=== PATIENT | female | born 1985 | race Two or more races ===

== ENCOUNTER 2017-08-24 21:01 | Emergency (ER) | payer MEDICAID ==
--- NOTE | 2017-08-24 21:58 | RADIOLOGY REPORT (SQ) ---
EXAM DESCRIPTION: KNEE LEFT 4 VIEW COMPLETED DATE/TIME: 08/24/2017 9:41 pm REASON FOR STUDY: left knee injury COMPARISON: None. NUMBER OF VIEWS: Four views. TECHNIQUE: AP, lateral, and both oblique radiographic images acquired of the left knee. LIMITATIONS: None. FINDINGS: MINERALIZATION: Normal. BONES: No acute fracture or dislocation. No worrisome bone lesions. JOINT: No effusion. SOFT TISSUES: No soft tissue swelling. No radio-opaque foreign body. OTHER: No other significant finding. IMPRESSION: NEGATIVE STUDY OF THE LEFT KNEE. NO RADIOGRAPHIC EVIDENCE OF ACUTE INJURY. TECHNICAL DOCUMENTATION: JOB ID: [id number] [employer]- All Rights Reserved Reading location - IP/workstation name: [email or web address]
[2017-08-24] MEDS ORDERED: KETOROLAC TROMETHAMINE 60 MG/2 ML SDV IM ONE (22:09)
--- NOTE | 2017-08-24 22:09 | ER Document Report ---
ED General - General Chief Complaint: Knee Injury Stated Complaint: KNEE INJURY Time Seen by Provider: 08/24/17 21:11 Mode of Arrival: Wheelchair Information source: POA - Power of Director Validation Notes: 31-year-old female presents with complaints of left knee injury. Patient notes she was ambulating in her leg slipped and she feels there is a pop sensation in the medial aspect. Patient denies any previous similar episodes TRAVEL OUTSIDE OF THE [place] IN LAST 30 DAYS: No - HPI Onset: Just prior to arrival Onset/Duration: Sudden Quality of pain: Achy Severity: Mild Pain Level: 1 Associated symptoms: Body/muscle aches Exacerbated by: Movement Relieved by: Denies Similar symptoms previously: No Recently seen / treated by doctor: No Past Medical History - Social History Smoking Status: Never Smoker Cigarette use (# per day): No Chew tobacco use (# tins/day): No Smoking Education Provided: No Family History: Reviewed & Not Pertinent Review of Systems - Review of Systems Notes: REVIEW OF SYSTEMS: CONSTITUTIONAL : Denies fever, chills, or sweats. Denies recent illness. EENT: Denies eye, ear, throat, or mouth pain or symptoms. Denies nasal or sinus congestion or discharge. Denies throat, tongue, or mouth swelling or difficulty swallowing. CARDIOVASCULAR: Denies chest pain. Denies palpitations or racing or irregular heart beat. Denies ankle edema. RESPIRATORY: Denies cough, cold, or chest congestion. Denies shortness of breath, difficulty breathing, or wheezing. GASTROINTESTINAL: Denies abdominal pain or distention. Denies nausea, vomiting , or diarrhea. Denies blood in vomitus, stools, or per rectum. Denies black, tarry stools. Denies constipation. GENITOURINARY: Denies difficulty urinating, painful urination, burning, frequency, blood in urine, or discharge. FEMALE GENITOURINARY: Denies vaginal bleeding, heavy or abnormal periods, irregular periods. Denies vaginal discharge or odor. MUSCULOSKELETAL: Admits to left knee pain SKIN: Denies rash, lesions or sores. HEMATOLOGIC : Denies easy bruising or bleeding. LYMPHATIC: Denies swollen, enlarged glands. NEUROLOGICAL: Denies confusion or altered mental status. Denies passing out or loss of consciousness. Denies dizziness or lightheadedness. Denies headache. Denies weakness or paralysis or loss of use of either side. Denies problems with gait or speech. Denies sensory loss, numbness, or tingling. Denies seizures. PSYCHIATRIC: Denies anxiety or stress. Denies depression, suicidal ideation, or homicidal ideation. ALL OTHER SYSTEMS REVIEWED AND NEGATIVE. PHYSICAL EXAMINATION: GENERAL: Well-appearing, well-nourished and in no acute distress. HEAD: Atraumatic, normocephalic. EYES: Pupils equal round extraocular movements intact, conjunctiva are normal. ENT: Nares patent NECK: Normal range of motion LUNGS: No respiratory distress Musculoskeletal: Normal range of motion except as noted NEUROLOGICAL: Normal speech, normal gait. PSYCH: Normal mood, normal affect. SKIN: Warm, Dry, normal turgor, no rashes or lesions noted. Physical Exam - Extremities Knee: Tender, Unable to bear weight. 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 Patient will be also given crutches and follow-up with orthopedics in 1 week for reevaluation. Patient was given pain control here There is no laxity there is no life-threatening signs at this time therefore I do believe the patient stable for discharge After performing a Medical Screening Examination, I estimate there is LOW risk for INTRACRANIAL HEMORRHAGE, UNSTABLE SPINE FRACTURE, CENTRAL CORD SYNDROME, CAUDA EQUINA, THORACIC AORTIC DISSECTION, PNEUMOTHORAX, PERFORATED BOWEL, RUPTURED ABDOMINAL AORTIC ANEURYSM, ACUTE TENDON RUPTURE, COMPARTMENT SYNDROME, or OPEN FRACTURE, thus I consider the discharge disposition reasonable. Also, there is no evidence or peritonitis, sepsis, or toxicity. I have reevaluated this patient multiple times and no significant life threatening changes are noted. The patient and I have discussed the diagnosis and risks, and we agree with discharging home to follow-up with their primary doctor with the understanding that symptoms and presentations can change. We also discussed returning to the Emergency Department immediately if new or worsening symptoms occur. We have discussed the symptoms which are most concerning (e.g., bloody stool, fever, changing or worsening pain, vomiting) that necessitate immediate return. - Diagnostic Test Radiology reviewed: Image reviewed - No acute fracture, Reports reviewed - No acute fracture noted report given to patient Procedures - Immobilization Left Knee Time completed: 20:00 Pre-Proc Neuro Vasc Exam: Normal Immobilizer type: Mac wrap, Knee immobilizer Performed by: PCT Post-Proc Neuro Vasc Exam: Normal Alignment checked and good: Yes Discharge - Discharge Clinical Impression: Right knee injury Qualifiers: Encounter type: initial encounter Qualified Code(s): S89.91XA - Unspecified injury of right lower leg, initial encounter Acute medial meniscal injury of knee Qualifiers: Encounter type: initial encounter Laterality: left Qualified Code(s): S83.8X2A - Sprain of other specified parts of left knee, initial encounter Condition: Stable Disposition: HOME, SELF-CARE Instructions: Suspected Internal Knee Injury ([facility]), Knee Immobilizing Splint ( [facility]) Prescriptions: Ketorolac Tromethamine [Toradol 10 mg Tablet] 10 mg PO Q8HP PRN #14 tablet PRN Reason: Referrals: YOLANDE DANIEL MD [ACTIVE STAFF] - Follow up in 1 week
== END 2017-08-24 22:33 | disposition home or self-care (01) ==
LOC: ER 21:01
DX: S83.8X2A Sprain of other specified parts of left knee, initial encounter (principal); M79.1 Myalgia; W01.0XXA Fall on same level from slipping, tripping and stumbling without subsequent striking against object, initial encounter
CPT/HCPCS: 99283; 96372; 73562; L1830; J1885

== ENCOUNTER 2018-01-18 00:49 | Emergency (ER) | payer MEDICAID ==
[2018-01-18 00:56] VITALS: BP 102/86
--- NOTE | 2018-01-18 01:24 | ER Document Report ---
ED General - General Chief Complaint: Congestion Stated Complaint: FEVER/CONGESTION Time Seen by Provider: 01/18/18 01:15 Notes: Patient is a 32-year-old female presents with complaint of nasal congestion, sinus pressure, cough, intermittent fever for close to a month. Temp is been around 101 at home. No vomiting. No diarrhea. No abdominal pain. No chest pain. No other complaints at this time. She does not smoke. She does not have a history of seasonal allergies. She has not had any itchy or watery eyes. She is taking qhmr-[id number]-pdzvmfr cough medicine which has not helped. She of asthma. TRAVEL OUTSIDE OF THE [place] IN LAST 30 DAYS: No - Related Data Allergies/Adverse Reactions: No Known Allergies Allergy (Unverified 01/18/18 00:52) Past Medical History - Social History Smoking Status: Never Smoker Chew tobacco use (# tins/day): No Frequency of alcohol use: None Drug Abuse: None Family History: Reviewed & Not Pertinent Patient has suicidal ideation: No Patient has homicidal ideation: No Renal/ Medical History: Denies: Hx Peritoneal Dialysis Past Surgical History: Reports: Hx Section Review of Systems - Review of Systems Notes: My Normal Review Basic REVIEW OF SYSTEMS: CONSTITUTIONAL : Fever EENT: Nasal congestion and sinus pressure. CARDIOVASCULAR: Denies chest pain. RESPIRATORY: Current cough GASTROINTESTINAL: Denies abdominal pain. Denies nausea, vomiting, or diarrhea. Denies constipation. Last BM: MUSCULOSKELETAL: Denies neck or back pain or joint pain or swelling. SKIN: Denies rash or skin lesions. NEUROLOGICAL: Denies altered mental status or loss of consciousness. Mild headache. Denies weakness or paralysis or loss of use of either side. Denies problems with gait or speech. Denies sensory or motor loss. ALL OTHER SYSTEMS REVIEWED AND NEGATIVE. Physical Exam - Vital signs Vitals: Temp Pulse Resp BP Pulse Ox 98.2 F 82 16 102/86 H 97 01/18/18 00:54 01/18/18 00:54 01/18/18 00:54 01/18/18 00:54 01/18/18 00:54 - Notes Notes: General Appearance: Well nourished, alert, cooperative, no acute distress, no obvious discomfort. Current dry cough during exam. Audible nasal congestion. Vitals: reviewed, See vital signs table. Head: no swelling or tenderness to the head Eyes: PERRL, EOMI, Conjuctiva clear Mouth: No decreasd moisture Nose: Faint yellow drainage and sudden nasal passages. Ears: Normal-appearing tympanic membranes bilaterally. Throat: No tonsillar inflammation, No airway obstruction, No lymphadenopathy Neck: Supple, no neck tenderness, No thyromegaly Lungs: No increased work of breathing. Patient does have faint wheeze on the right side. Good air movement. Heart: Normal rate, Regular rythm, No murmur, no rub Abdomen: Normal BS, soft, No rigidity, No abdominal tenderness, No guarding, no rebound, no abdominal masses, no organomegaly Extremities: good pulses in all extremities, no edema. Skin: warm, dry, appropriate color, no rash Neuro: speech clear, oriented x 3, normal affect, responds appropriately to questions. Course - Re-evaluation Re-evalutation: 01/18/18 06:11 Patient has what appears to be sinusitis. She is been having recurrent fevers and congestion for now almost a month. Will place her on Augmentin. Chest x- ray did not show any evidence of pneumonia. Patient to return to ER if she has difficulty breathing, recurrent fevers, or feels that she is worsening. Patient agrees with plan will be discharged home. Dictation of this chart was performed using voice recognition software; therefore, there may be some unintended grammatical errors. - Vital Signs Vital signs: Temp Pulse Resp BP Pulse Ox 98.2 F 82 16 102/86 H 97 01/18/18 00:54 01/18/18 00:54 01/18/18 00:54 01/18/18 00:54 01/18/18 00:54 Discharge - Discharge Clinical Impression: Sinusitis Qualifiers: Sinusitis location: unspecified location Chronicity: acute Recurrence: not specified as recurrent Qualified Code(s): J01.90 - Acute sinusitis, unspecified Condition: Good Disposition: HOME, SELF-CARE Additional Instructions: Please take the antibiotics as prescribed. Stop the antibiotics if you develop diarrhea. Please follow up with a doctor in 3-5 days for reevaluation. Please return to the ER immediately if you develop recurrent fevers, difficulty breathing, or severe headaches. Prescriptions: Amox Tr/Potassium Clavulanate [Augmentin 875-125 Tablet] 1 tab PO BID 10 Days tablet Forms: Return to Work
--- NOTE | 2018-01-18 02:00 | RADIOLOGY REPORT (SQ) ---
EXAM DESCRIPTION: XR CHEST 2 VIEWS COMPLETED DATE/TME: 01/18/2018 01:21 CLINICAL HISTORY: 32 years Female, cough, fever COMPARISON: None. FINDINGS: Adequate lung volume, clear parenchyma, normal cardiac silhouette, and grossly intact bony thorax. IMPRESSION: No acute cardiopulmonary findings.
[2018-01-18] MEDS ORDERED: AMOXICILLIN TR/POT CLAVULANATE 500-125 MG TAB PO ONE (02:16)
[2018-01-18] MEDS ORDERED: DEXAMETHASONE SOD PHOS INJ 10 MG/1 ML VIAL IM ONE (02:16)
== END 2018-01-18 02:43 | disposition home or self-care (01) ==
LOC: ER 00:49
DX: J01.90 Acute sinusitis, unspecified (principal); R09.81 Nasal congestion; R05 Cough; R50.9 Fever, unspecified; R06.2 Wheezing
CPT/HCPCS: 99283; 96372; 71046; J3490; J1100

== ENCOUNTER 2018-06-06 03:50 | Emergency (ER) | payer MEDICAID ==
[2018-06-06 03:55] VITALS: BP 128/74
--- NOTE | 2018-06-06 04:21 | ER Document Report ---
ED General - General Mode of Arrival: Ambulatory Information source: Patient TRAVEL OUTSIDE OF THE [place] IN LAST 30 DAYS: No - General Chief Complaint: Flu Symptoms Stated Complaint: FLU SYMPTOMS Time Seen by Provider: 06/06/18 04:08 Notes: Patient is a 32 year old female presenting to the emergency department complaining of flu like symptoms including fevers, chills, body aches, cough and congestion. Patient states her cough and congestion were onset 06/02 and her fever and chills were onset on 06/04. Patient also complains of a small amount of throat pain. Patient's LMP was last week. Patient denies receiving a flu shot this year. ([place]ON JO[place]) - Related Data Allergies/Adverse Reactions: No Known Allergies Allergy (Unverified 01/18/18 00:52) Past Medical History - General Information source: Patient - Social History Smoking Status: Never Smoker Cigarette use (# per day): No Chew tobacco use (# tins/day): No Smoking Education Provided: No Frequency of alcohol use: None Family History: Reviewed & Not Pertinent Past Surgical History: Reports: Hx Section - x3, Hx Tubal Ligation Review of Systems - Review of Systems Constitutional: See HPI, Chills, Fever EENT: See HPI, Nose congestion Cardiovascular: No symptoms reported Respiratory: See HPI, Cough Gastrointestinal: No symptoms reported Genitourinary: No symptoms reported Female Genitourinary: No symptoms reported Musculoskeletal: No symptoms reported, See HPI Skin: No symptoms reported Hematologic/Lymphatic: No symptoms reported Neurological/Psychological: No symptoms reported -: Yes All other systems reviewed and negative Physical Exam - Vital signs Vitals: Temp Pulse Resp BP Pulse Ox 98 F 90 16 128/74 H 96 06/06/18 03:51 06/06/18 03:51 06/06/18 03:51 06/06/18 03:51 06/06/18 03:51 - Notes Notes: GENERAL: Alert, interacts well. No acute distress. HEAD: Normocephalic, atraumatic. EYES: Pupils equal, round, and reactive to light. Extraocular movements intact. ENT: Oral mucosa moist, tongue midline. Nares patent, no nasal septal hematoma, TM's retracted bilaterally. NECK: Full range of motion. Supple. Trachea midline. LUNGS: Harsh cough. Expiratory wheeze with cough. HEART: Regular rate and rhythm. No murmurs, gallops, or rubs. ABDOMEN: Soft, non-tender. Non-distended. Bowel sounds present in all 4 quadrants. EXTREMITIES: Moves all 4 extremities spontaneously. NEUROLOGICAL: Alert and oriented x3. Normal speech. PSYCH: Normal affect, normal mood. SKIN: Warm, dry, normal turgor. No rashes or lesions noted. ([place]) - Vital Signs Vital signs: Temp Pulse Resp BP Pulse Ox 98 F 90 16 128/74 H 96 06/06/18 03:51 06/06/18 03:51 06/06/18 03:51 06/06/18 03:51 06/06/18 03:51 Discharge - Discharge Clinical Impression: Influenza-like illness Condition: Stable Disposition: HOME, SELF-CARE Additional Instructions: Viral Syndrome The physician has diagnosed a viral infection. Viruses not only cause "colds," but can cause many different symptoms including generalized aching, fever, headache, cough, diarrhea, nausea, vomiting, and fatigue. The treatment, for the most part, is simply relief of symptoms. This means that antibiotics are usually not given. Rest, fluids, pain medications and, occasionally, medication for the specific symptoms that are most bothersome will be prescribed. Use good handwashing to avoid passing the virus to others. Shared toys should be cleaned with disinfectant. Clean the toilets, sinks, and counter surfaces in bathrooms. Launder clothing in hot water. Contact the physician if you develop any new or unusual symptoms such as severe headache, stiff neck, high fever, chest pain, productive cough, or shortness of breath. You should be rechecked if you don't see marked improvement within seven to 10 days. You appear to have a viral influenza-like illness, but it is not the real influenza. Take [id number]-[id number] cough and cold preparations for symptomatic relief. Drink plenty of fluids and get plenty of rest. Take Tylenol and ibuprofen for fever and aches and pains. Be sure to check the ingredients of any krtj-eeb-bjmeaol cough and cold preparations so you do not take excessive amounts of Tylenol. Follow-up with your primary care provider if not improving. RETURN TO THE EMERGENCY ROOM IF ANY NEW OR WORSENING SYMPTOMS. Forms: Return to Work Scribe Attestation: 06/06/18 04:56 I personally performed the services described in the documentation, reviewed and edited the documentation which was dictated to the scribe in my presence, and it accurately records my words and actions. (MEG NATH) Ramanibe Documentation - Scribe Written by Cisco:: Cisco Nicholson, 06/06/2018 04:21 acting as scribe for :: Gal
[2018-06-06 05:01] LABS: A TYPE INFLUENZA AG NEGATIVE (NEGATIVE); B INFLUENZA AG NEGATIVE (NEGATIVE)
== END 2018-06-06 05:26 | disposition home or self-care (01) ==
LOC: ER 03:50
DX: J11.1 Influenza due to unidentified influenza virus with other respiratory manifestations (principal); R50.9 Fever, unspecified; R05 Cough; R07.0 Pain in throat; R09.81 Nasal congestion; R06.2 Wheezing
CPT/HCPCS: 87804; 99283

== ENCOUNTER 2018-08-01 03:04 | Emergency (ER) | payer SELFPAY ==
[2018-08-01 07:47] LABS: APPEARANCE,URINE SLIGHTLY-CLOUDY; BILIRUBIN,URINE NEGATIVE (NEGATIVE); COLOR,URINE YELLOW; GLUCOSE, URINE NEGATIVE (NEGATIVE); KETONES,URINE NEGATIVE (NEGATIVE); LEUKOCYTE ESTERASE,URINE SMALL (NEGATIVE); NITRITE,URINE POSITIVE (NEGATIVE); PROTEIN,URINE NEGATIVE (NEGATIVE); URINE SPECIFIC GRAVITY 1.016; UROBILINOGEN,URINE NEGATIVE mg/dL (<2.0)
[2018-08-01] MEDS ORDERED: KETOROLAC TROMETHAMINE 60 MG/2 ML SDV IM ONE (07:57)
[2018-08-01] MEDS ORDERED: NITROFURANTOIN MONOHYD/M-CRYST 100 MG CAPSULE PO ONE (07:58)
--- NOTE | 2018-08-01 08:19 | ER Document Report ---
ED General - General Chief Complaint: Back Pain Stated Complaint: BACK PAIN Time Seen by Provider: 08/01/18 06:23 TRAVEL OUTSIDE OF THE [place] IN LAST 30 DAYS: No - HPI Notes: Patient presents to the emergency department for evaluation of lower back pain. She states it started primarily on the right side but is now hurting her entire back. She states symptoms been present for 6 days. She states she had some low-grade feelings fevers but never actually took her temperature. She has had no nausea or vomiting. She states nearly everything hurts at this point. She denies any bowel or bladder incontinence, no saddle anesthesia, no focal numbness or weakness. She does report some urinary frequency. - Related Data Allergies/Adverse Reactions: No Known Allergies Allergy (Unverified 01/18/18 00:52) Past Medical History - General Information source: Patient - Social History Smoking Status: Unknown if Ever Smoked Family History: Reviewed & Not Pertinent Patient has suicidal ideation: No Patient has homicidal ideation: No Renal/ Medical History: Denies: Hx Peritoneal Dialysis Past Surgical History: Reports: Hx Section - x3, Hx Tubal Ligation Review of Systems - Review of Systems Constitutional: See HPI EENT: No symptoms reported Cardiovascular: No symptoms reported Respiratory: No symptoms reported Gastrointestinal: No symptoms reported Genitourinary: See HPI Musculoskeletal: See HPI Skin: No symptoms reported Neurological/Psychological: No symptoms reported Physical Exam - Vital signs Vitals: Temp Pulse Resp BP Pulse Ox 98.1 F 77 18 129/83 H 100 08/01/18 03:41 08/01/18 03:41 08/01/18 03:41 08/01/18 03:41 08/01/18 03:41 - Notes Notes: Vital signs reviewed, please refer to chart. Patient is normocephalic, atraumatic. Pupils equal round, reactive to light. Neck is supple without meningismus. Heart is regular rate and rhythm. Lungs are clear to auscultation bilaterally. Abdomen is soft, nontender, normoactive bowel sounds throughout. Extremities without cyanosis, clubbing, edema. Peripheral pulses are equal. Skin is warm and dry. Patient is awake, alert, neurological exam is nonfocal. Examination of the spine shows no midline tenderness or step-off. She has paraspinal musculature tenderness from C7 all the way through L5. No apparent muscle spasms. Strength is plus 5 out of 5 bilateral lower extremities. Patellar and Achilles reflexes are mildly diminished but symmetrical. Sensation is intact. Negative straight leg raise bilaterally. Course - Re-evaluation Re-evalutation: 08/01/18 08:16 Patient presents emergency department for evaluation. Urinalysis was ordered and found to be nitrite positive. This was sent for culture. She was given first dose of antibiotics and anti-inflammatory here. We will give her a work excuse and close follow-up. She is to return to the emergency department with worsening or new concerning symptoms. - Vital Signs Vital signs: Temp Pulse Resp BP Pulse Ox 98.1 F 77 18 129/83 H 100 08/01/18 03:41 08/01/18 03:41 08/01/18 03:41 08/01/18 03:41 08/01/18 03:41 - Laboratory Laboratory results interpreted by me: 08/01/18 06:44 Urine Blood MODERATE H Urine Nitrite POSITIVE H Ur Leukocyte Esterase SMALL H Discharge - Discharge Clinical Impression: Urinary tract infection Qualifiers: Encounter type: initial encounter Back pain Qualifiers: Chronicity: acute Instructions: Nitrofurantoin ([facility]), Urinary Tract Infection ([facility]) Additional Instructions: Take all the antibiotic as prescribed until gone. Stay well-hydrated. Ibuprofen as needed for pain. Follow-up with your doctor in 1-2 weeks. Return to the emergency department with worsening or new concerning symptoms. Forms: Parent Work Note
[2018-08-01 08:30] VITALS: BP 128/79
== END 2018-08-01 08:30 | disposition home or self-care (01) ==
LOC: ER 03:04
DX: N39.0 Urinary tract infection, site not specified (principal); M54.9 Dorsalgia, unspecified; M54.5 Low back pain; R50.9 Fever, unspecified
CPT/HCPCS: 99283; 96372; 87086; 81025; 87088; 81001; 87186; J1885; J8499